=== PATIENT | female | born 1990 | race African-American/Black ===

== ENCOUNTER 2017-12-18 11:20 | Observation (INO) | payer MEDICAID ==
[~2017-12-18] VITALS: Ht 160 cm; Wt 95.7 kg
[2017-12-18] MEDS ORDERED: ACETAMINOPHEN 500MG TABLET PO NR (12:30)
[2017-12-18 12:38] LABS: CLARITY URINE CLEAR (CLEAR); COLOR URINE YELLOW (YELLOW); KETONES URINE NEGATIVE (NEGATIVE); LEUKOCYTE ESTERASE URINE NEGATIVE (NEGATIVE); NITRITE URINE NEGATIVE (NEGATIVE); OCCULT BLOOD URINE NEGATIVE (NEGATIVE); PH URINE 6.5 (4.5-8.0); PROTEIN URINE NEGATIVE (NEGATIVE); SPECIFIC GRAVITY URINE 1.017 (1.005-1.030)
== END 2017-12-18 13:48 | disposition home or self-care (01) ==
LOC: L&D 11:20
PROVIDERS: ADMIT Obstetrics & Gynecology; ATTEND Obstetrics & Gynecology
DX: O26.893 Other specified pregnancy related conditions, third trimester (principal); G43.909 Migraine, unspecified, not intractable, without status migrainosus; Z3A.35 35 weeks gestation of pregnancy
CPT/HCPCS: 81003; G0378